=== PATIENT | male | born 1990 | race Caucasian/White ===

== ENCOUNTER 2016-06-20 17:52 | Emergency (ER) | payer OTHER ==
[~2016-06-20] VITALS: Ht 170.2 cm; Wt 122.0 kg
[~2016-06-20 17:52] MED LIST: IBUP-1542 PO
[2016-06-20 18:27] VITALS: Ht 170.2 cm; Wt 122.0 kg
[2016-06-20] MEDS ORDERED: CETI10CA PO (19:04)
[2016-06-20] MEDS ORDERED: IBUP400T22 PO (19:04)
[2016-06-20] MEDS ORDERED: NPH10OT BOTH EARS (19:04)
--- NOTE | 2016-06-20 21:37 | ERD ---
ER Documentation Chief Complaint Date/Time DATE: 06/20/16 TIME: 21:35 Chief Complaint both ear pain x 4 days HPI Patient is a 26-year-old male who presents to the ED with bilateral ear pain, right greater than left 3 days. He states that he did have a cold last week with cough and congestion. He states that those symptoms have resolved however he states that he developed pain in his bilateral ears. He denies fever or chills. Denies drainage from his ears or difficulty hearing. Denies headache or dizziness. Neck pain or stiffness. Denies chest pain or shortness of breath. Denies abdominal pain, nausea, vomiting or diarrhea. He states he has not taken any medication for his symptoms. No other complaints per ROS All systems reviewed and are negative except as per history of present illness. Medications Home Meds Active Scripts Ibuprofen* (Motrin*) 400 Mg Tab, 400 MG PO Q6, #30 TAB Prov:CONSUELO HEALY PA-C 06/20/16 Cetirizine Hcl* (Zyrtec*) 10 Mg Capsule, 10 MG PO DAILY, #30 TAB.CHEW Prov:CONSUELO HEALY PA-C 06/20/16 Neomycin/Polymyxin/Hydrocort* (Cortisporin* Otic) 10 Ml Susp, 4 DROP BOTH EARS QID, #1 EA Prov:CONSUELO HEALY PA-C 06/20/16 Ibuprofen* (Motrin*) 600 Mg Tab, 600 MG PO Q6H Y for PAIN AND OR ELEVATED TEMP, #30 Prov:JOLENE BLACKMAN DO 12/18/14 Allergies Allergies: Coded Allergies: No Known Drug Allergy (Verified Allergy, Unknown, 12/18/14) PMhx/Soc Medical and Surgical Hx: pt denies Medical Hx, pt denies Surgical Hx History of Surgery: No Anesthesia Reaction: No Hx Neurological Disorder: No Hx Respiratory Disorders: No Hx Cardiac Disorders: No Hx Psychiatric Problems: No Hx Miscellaneous Medical Probl: No Hx Alcohol Use: No Hx Substance Use: No Hx Tobacco Use: No Smoking Status: Never smoker FmHx Family History: No coronary disease, No diabetes, No other Physical Exam Vitals Vital Signs Date Time Temp Pulse Resp B/P Pulse Ox O2 Delivery O2 Flow Rate FiO2 06/20/16 18:27 98.3 84 20 139/63 100 Physical Exam GENERAL: Well-developed, well-nourished male. Appears in no acute distress. HEAD: Normocephalic, atraumatic. EYES: Pupils are equally reactive bilaterally. EOMs grossly intact. No conjunctival erythema. ENT: Moist mucous membranes. No uvula deviation. No kissing tonsils. No exudates. Bilateral TMs are nonerythematous and nonbulging. No mastoid tenderness. Slight tenderness to the pinna. Erythematous canal. No bleeding. NECK: Supple. No lymphadenopathy or thyromegaly. No meningismus. negative kernig. negative brudinski. LUNG: Clear to auscultation bilaterally. No rhonchi, wheezing, rales or coarse breath sounds. HEART: Regular rate and rhythm. No murmurs, rubs or gallops. SKIN: Normal color. Warm and dry. No rashes or lesions. Capillary refill < 2 seconds Procedures/MDM ER COURSE: I kept the patient and/or family informed of laboratory and diagnostic imaging results throughout the emergency room course. MEDICAL DECISION MAKING: This is a 26-year-old male who presents with bilateral ear pain 3 days. Vital signs were reviewed. Patient is afebrile. Patient is not hypoxic. Patient is not toxic or ill-appearing. Patient likely has otitis externa. Low suspicion for malignant otitis externa, TM perforation, mastoiditis, acute otitis media. DISCHARGE: At this time, patient is stable for discharge and outpatient management with no new complaints during the ER course. Patient was sent home with Motrin, Zyrtec and Corticosporin otic drops.. Patient will be discharged home with instructions to recheck for new or worsening symptoms such as fever, nausea, weakness, LOC and to follow up with primary care in the next 1-2 days. Patient was advised to return to the ER for any new or worsening symptoms. Plan was discussed and patient and/or family understands and agrees. Home instructions were given. Departure Diagnosis: Primary Impression: Left ear pain Condition: Stable Patient Instructions: Otitis Externa (Child) Referrals: YUNIER PAGE Additional Instructions: Call your primary care doctor TOMORROW for an appointment during the next 1-2 days.See the doctor sooner or return here if your condition worsens before your appointment time. CONSUELO HEALY PA-C Jun 20, 2016 21:37
== END 2016-06-20 19:18 | disposition home or self-care (01) ==
LOC: FTE 17:52
DX: H92.02 Otalgia, left ear (principal)
CPT/HCPCS: 99283

== ENCOUNTER 2016-08-06 17:01 | Emergency (ER) | payer OTHER ==
[~2016-08-06] VITALS: Wt 86.4 kg
[~2016-08-06 17:01] MED LIST changes: +CETI10CA PO; +IBUP400T22 PO; +NPH10OT BOTH EARS
[2016-08-06] MEDS ORDERED: ACET500C5 PO (17:43)
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
== END 2016-08-06 17:55 | disposition home or self-care (01) ==
LOC: FTE 17:01
DX: S00.83XA Contusion of other part of head, initial encounter (principal); V89.2XXA Person injured in unspecified motor-vehicle accident, traffic, initial encounter
CPT/HCPCS: 99283